=== PATIENT | female | born 1980 | race Caucasian/White ===

== ENCOUNTER 2023-04-09 07:52 | Emergency (ER) | payer BC, OTHER ==
[2023-04-09 08:37] LABS: APPEARANCE,URINE SLIGHTLY CLOUDY (CLEAR); BILIRUBIN,URINE NEGATIVE (NEGATIVE); COLOR,URINE YELLOW (YELLOW); GLUCOSE,URINE 500 mg/dL (NEGATIVE); KETONES,URINE NEGATIVE (NEGATIVE); LEUKOCYTE ESTERASE,URINE NEGATIVE (NEGATIVE); NITRITE,URINE NEGATIVE (NEGATIVE); OCCULT BLOOD,URINE TRACE-LYSED (NEGATIVE); PROTEIN,URINE NEGATIVE (NEGATIVE); UROBILINOGEN,URINE 0.2 EU/dL (0.2-1.0)
[2023-04-09 08:38] LABS: AMORPHOUS SEDIMENT,URINE RARE; BACTERIA,URINE RARE; EPITHELIAL CELLS,URINE FEW; MUCUS,URINE NOT SEEN; RBC,URINE 0-5 (0-5); WBC,URINE 0-5 (0-5)
[2023-04-09] MEDS ORDERED: Cyclobenzaprine 10 MG Tab PO ONE (08:48)
[2023-04-09] MEDS ORDERED: Ketorolac 30 MG/ML SDV IM ONE (08:48)
== END 2023-04-09 09:40 | disposition home or self-care (01) ==
LOC: JP.ED 07:52
DX: M54.50 Low back pain, unspecified (principal); Z86.16 Personal history of COVID-19
CPT/HCPCS: 81001; 81025; 96372; 99283; A9270; J1885

== ENCOUNTER 2024-08-10 12:03 | Emergency (ER) | payer OTHER ==
[2024-08-10] MEDS: Diazepam 5 MG Tab PO ONE ×2 (15:03→16:42)
== END 2024-08-10 16:51 | disposition home or self-care (01) ==
LOC: JP.ED 12:03
DX: M62.830 Muscle spasm of back (principal); Z86.16 Personal history of COVID-19
CPT/HCPCS: 72040; 72100; 99284; A9270